=== PATIENT | male | born 1940 | race Caucasian/White ===

== ENCOUNTER 2017-07-20 08:02 | Day surgery (SDC) | payer OTHER, BC ==
[2017-07-19 19:29] VITALS: BMI 28.0
[2017-07-20] MEDS ORDERED: PROPOFOL 20 ML ONE ×2 (08:11→09:54)
[2017-07-20 10:40] VITALS: TEMP 97.9
[2017-07-20 10:50] VITALS: BP 109/63; PULSE 60
--- NOTE | 2017-07-21 15:00 | PATH ---
Surgical Pathology Report Patient Name: ETHAN TYLER [facility]. Rec. #: [id number] /Age/Gender: 1940 (Age: 76) / M Account: [id number] Location: COUNT INCLUDES THE [facility]-ENDOSCOPY Taken: 07/20/2017 Received: 07/20/2017 Reported: 07/21/2017 Physicians: Alexi Bell M.D. Specimen(s) Received A: BX ANTRUM B: BX RIGHT COLON Clinical History History of polyps, GERD Gastritis, superficial linear ulcers in antrum, colonic polyp Final Diagnosis A. STOMACH, ANTRUM, BIOPSY: MILD CHRONIC GASTRITIS. IMMUNOSTAIN FOR H. PYLORI IS NEGATIVE. B. COLON, RIGHT, BIOPSY: TUBULAR ADENOMA. Electronically Signed Zeke Mejia M.D. Gross Description A. Received in formalin, labeled "antrum" is a ramachandran, irregular portion of soft tissue measuring 0.3 cm. in greatest dimension. The specimen is submitted in toto in one cassette. B. Received in formalin, labeled "right colon" are 2 ramachandran, irregular portions of soft tissue averaging 0.2 cm. in greatest dimension. The specimens are submitted in toto in one cassette. DL/07/20/2017 saudi07/20/2017
== END 2017-07-20 11:33 | disposition home or self-care (01) ==
LOC: FASU-ENDO 08:02
PROVIDERS: ATTEND Internal Medicine Gastroenterology
PROC: 0DBK8ZX Excision of Ascending Colon, Via Natural or Artificial Opening Endoscopic, Diagnostic (ICD-10-PCS; principal; 2017-07-20 10:00)
PROC: 0DB68ZX Excision of Stomach, Via Natural or Artificial Opening Endoscopic, Diagnostic (ICD-10-PCS; 2017-07-20 10:00)
DX: Z86.010 Personal history of colon polyps (principal); K57.30 Diverticulosis of large intestine without perforation or abscess without bleeding; K20.9 Esophagitis, unspecified; D12.2 Benign neoplasm of ascending colon; K29.50 Unspecified chronic gastritis without bleeding
CPT/HCPCS: 88305-TC; 88342-TC